=== PATIENT | male | born 1960 | race American Indian/Alaskan Native ===

== ENCOUNTER 2018-01-04 07:25 | Day surgery (SDC) | payer BC, MEDICARE ==
[2018-01-03 13:38] VITALS: BMI 39.5
--- NOTE | 2018-01-04 08:20 | CP.SDSHP ---
Same Day Surgery H & P - History Proposed Procedure: colonoscopy - Previous Medical/Surgical History Cardiac: Other (cardiomegaly) Previous Surgical History: biopsy prostate thyroid Sx - Allergies Allergies: Allergies shellfish derived Allergy (Verified 01/04/18 07:45) URTICARIA - Physical Exam Vital Signs: Vital Signs 01/04/18 07:46 Temperature 98.6 F Pulse Rate 71 Respiratory 20 Rate Blood Pressure 118/68 O2 Sat by Pulse 99 Oximetry - Date & Time Date: 01/04/18 Time: 08:19 Short Stay Discharge - Short Stay Discharge Admitting Diagnosis/Reason for Visit: ENCOUNTER FOR SCREENING FOR MALIGNANT NEOPLASM OF Disposition: HOME/ ROUTINE
[2018-01-04] MEDS ORDERED: Lidocaine Hydrochloride 5 ML INJ ONE (08:30)
[2018-01-04] MEDS ORDERED: Propofol 10 mg/ml Inj (20 ML) ONE (08:30)
[2018-01-04] MEDS ORDERED: Midazolam 2 MG/2 ML VIAL ONE (08:30)
[2018-01-04 09:11] VITALS: TEMP 97.7
[2018-01-04 09:19] VITALS: O2SAT 100
[2018-01-04 09:54] VITALS: RESP 18
[2018-01-04 10:13] VITALS: BP 94/50; PULSE 68
== END 2018-01-04 10:09 | disposition home or self-care (01) ==
LOC: C.ENDO 07:25
PROVIDERS: ATTEND Colon & Rectal Surgery
DX: Z12.11 Encounter for screening for malignant neoplasm of colon (principal); K62.1 Rectal polyp; K64.8 Other hemorrhoids
CPT/HCPCS: 45388; 88305; J2250; J2704